=== PATIENT | male | born 2000 | race Two or more races ===

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

== ENCOUNTER 2020-02-17 22:22 | Emergency (ER) | payer OTHER ==
[~2020-02-17] VITALS: Ht 175.3 cm; Wt 61.2 kg
[~2020-02-17 22:22] MED LIST changes: +DOLOGESIC 500-1 EACH PO; +SINGULAIR10 MG PO
== END 2020-02-18 00:50 | disposition home or self-care (01) ==
LOC: ER 22:22
DX: L03.012 Cellulitis of left finger (principal)

== ENCOUNTER 2020-03-07 21:06 | Emergency (ER) | payer OTHER ==
[~2020-03-07] VITALS: Ht 182.9 cm; Wt 59.0 kg
[2020-03-08] MEDS ORDERED: DOLOGESIC-DF 51 EACH PO (00:46)
[2020-03-08] MEDS ORDERED: LEVSIN/SL0.125 MG SL (00:46)
== END 2020-03-08 00:50 | disposition home or self-care (01) ==
LOC: EMR PED 21:06 → ER 21:06 → EMR PED 21:22 → ER 03-08 00:50
DX: B34.9 Viral infection, unspecified (principal); R51.9 Headache, unspecified; R10.84 Generalized abdominal pain

== ENCOUNTER 2020-03-12 19:15 | Emergency (ER) | payer OTHER ==
[~2020-03-12] VITALS: Ht 180.3 cm; Wt 59.0 kg
[~2020-03-12 19:15] MED LIST changes: +DOLOGESIC-DF 51 EACH PO; +LEVSIN/SL0.125 MG SL
== END 2020-03-12 20:33 | disposition left against medical advice (07) ==
LOC: ER 19:15 → EMR PED 19:17 → ER 19:17 → EMR PED 20:33
DX: K52.89 Other specified noninfective gastroenteritis and colitis (principal); R10.84 Generalized abdominal pain

== ENCOUNTER 2020-05-12 20:13 | Emergency (ER) | payer OTHER ==
[~2020-05-12] VITALS: Ht 182.9 cm; Wt 61.2 kg
== END 2020-05-12 22:00 | disposition home or self-care (01) ==
LOC: EMR PED 20:13
DX: S60.811A Abrasion of right wrist, initial encounter (principal); S80.811A Abrasion, right lower leg, initial encounter; S20.311A Abrasion of right front wall of thorax, initial encounter; W22.8XXA Striking against or struck by other objects, initial encounter; Y93.89 Activity, other specified; Y92.018 Other place in single-family (private) house as the place of occurrence of the external cause; Y99.8 Other external cause status

== ENCOUNTER 2020-07-06 19:38 | Emergency (ER) | payer OTHER ==
[~2020-07-06] VITALS: Ht 185.4 cm; Wt 61.2 kg
[2020-07-06] MEDS ORDERED: ZITHROMAX500 MG PO (20:45)
[2020-07-06] MEDS ORDERED: DOLOGEN 325-11 EACH PO (20:45)
== END 2020-07-06 21:18 | disposition home or self-care (01) ==
LOC: EMR PED 19:38
DX: J32.8 Other chronic sinusitis (principal); J31.2 Chronic pharyngitis; R51.9 Headache, unspecified

== ENCOUNTER 2021-11-13 20:27 | Emergency (ER) | payer OTHER ==
[~2021-11-13] VITALS: Ht 188 cm; Wt 74.8 kg
[2021-11-14] MEDS ORDERED: PEPCID40 MG PO (08:17)
[2021-11-14] MEDS ORDERED: INTESTINEX680 M1 PO (08:17)
[2021-11-14] MEDS ORDERED: ONDANSETRON ODT4 MG PO (08:17)
== END 2021-11-14 09:11 ==
LOC: ER 20:27
DX: K52.9 Noninfective gastroenteritis and colitis, unspecified (principal); B34.9 Viral infection, unspecified

== ENCOUNTER 2022-01-17 18:21 | Emergency (ER) | payer OTHER ==
[~2022-01-17] VITALS: Ht 185.4 cm; Wt 59.0 kg
[~2022-01-17 18:21] MED LIST changes: +INTESTINEX680 M1 PO; +ONDANSETRON ODT4 MG PO; +PEPCID40 MG PO
[2022-01-18] MEDS ORDERED: CVS OMEPRAZOLE1 EACH PO (00:16)
[2022-01-18] MEDS ORDERED: INTESTINEX680 M1 PO (04:40)
[2022-01-18] MEDS ORDERED: PEPCID AC20 MG PO (04:40)
[2022-01-18] MEDS ORDERED: LEVSIN0.125 MG PO (04:40)
== END 2022-01-18 05:37 | disposition home or self-care (01) ==
LOC: ER 18:21
DX: A05.9 Bacterial foodborne intoxication, unspecified (principal); K29.70 Gastritis, unspecified, without bleeding

== ENCOUNTER 2022-06-26 23:28 | Emergency (ER) | payer OTHER ==
[~2022-06-26] VITALS: Ht 185.4 cm; Wt 65.8 kg
[~2022-06-26 23:28] MED LIST changes: +CVS OMEPRAZOLE1 EACH PO; +LEVSIN0.125 MG PO; +PEPCID AC20 MG PO
[2022-06-27] MEDS ORDERED: PEPCID40 MG PO (05:26)
[2022-06-27] MEDS ORDERED: ONDANSETRON ODT4 MG PO (05:26)
[2022-06-27] MEDS ORDERED: CEPHALEXIN250 MG/5 M PO (05:26)
== END 2022-06-27 05:36 ==
LOC: ER 23:28
DX: R30.0 Dysuria (principal); K29.70 Gastritis, unspecified, without bleeding; Z20.822 Contact with and (suspected) exposure to COVID-19

== ENCOUNTER 2023-02-02 12:52 | Emergency (ER) | payer OTHER ==
[~2023-02-02] VITALS: Ht 185.4 cm; Wt 61.2 kg
[~2023-02-02 12:52] MED LIST changes: +CEPHALEXIN250 MG/5 M PO
== END 2023-02-02 15:51 | disposition left against medical advice (07) ==
LOC: ER 12:52
PROVIDERS: General Practice
DX: B34.9 Viral infection, unspecified (principal); Z20.822 Contact with and (suspected) exposure to COVID-19

== ENCOUNTER 2025-01-28 21:29 | Emergency (ER) | payer OTHER ==
[~2025-01-28] VITALS: Ht 185.4 cm; Wt 61.2 kg
[2025-01-28] MEDS ORDERED: DEPAKOTE ER500 MG PO (21:41)
[2025-01-28] MEDS ORDERED: RISPERDAL1 MG (21:42)
[2025-01-28] MEDS ORDERED: CLONAZEPAM0.5 MG PO (21:42)
[2025-01-28] MEDS ORDERED: FAMOtidine 10 MG/ML (4ML VIAL) IV ONE (22:00)
[2025-01-28] MEDS ORDERED: ONDANSETRON HCL 2 MG/ML VIAL IV ONE (22:00)
[2025-01-28] MEDS ORDERED: 0.9 % SODIUM CHLORIDE 1,000 ML IV ONE (22:00)
[2025-01-28] MEDS ORDERED: FAMOTIDINE/PF 20 MG/2 ML VIAL ONE (22:09)
[2025-01-28] MEDS ORDERED: ONDANSETRON HCL 2 MG/ML VIAL ONE (22:09)
[2025-01-28 22:47] LABS: ABG PH 7.479 (7.35-7.45); ABG PO2 110.6 mmHg (80-100); BICARBONATE 21.7 mmol/l (23-25)
[2025-01-28 22:56] LABS: o2 21 %
[2025-01-28 23:34] LABS: BASO % 0.2 % (0.1-1.2); EOS # 0.05 (0.04-0.54); EOS % 1.2 % (0.7-7.0); LYMPH # 1.56 (1.18-3.74); LYMPH % 37.5 % (19.3-53.1); MEAN PLATELET VOLUME 10.80 fl (9.4-12.4); MONO # 0.52 (0.24-0.82); MONO % 12.5 % (4.7-12.5); NEUT # 2.01 (1.56-6.13); NEUT % 48.4 % (34.0-71.1); RED CELL DISTRIBUTION WIDTH 11.8 % (11.6-14.4)
[2025-01-28 23:47] LABS: COVID-19 AG NEGATIVE (NEGATIVE)
[2025-01-28 23:50] LABS: ALT/SGPT 11.0 U/L (12-78); AST/SGOT 16.0 U/L (15-37); BILIRUBIN TOTAL 0.79 mg/dL (0.3-1.2); BUN CREA RATIO 14.0 (7.0-25.0); CREATININE SERUM 1.15 mg/dL (0.70-1.30); GFR 78.13; GLOBULINA 3.6 G/DL (2.4-3.5); GLUCOSE FASTING 98.0 mg/dL (65-100); OSMOLALITY SERUM 282.0 MOSM/KG (275-295)
[2025-01-29] MEDS ORDERED: ACETAMINOPHEN 500 MG GEL..CAP PO ONE (02:02)
[2025-01-29] MEDS ORDERED: CLONAZEPAM 1 MG TABLET PO STA (02:18)
[2025-01-29 03:45] LABS: BASO % 0.3 % (0.1-1.2); EOS # 0.04 (0.04-0.54); EOS % 1.0 % (0.7-7.0); LYMPH # 1.84 (1.18-3.74); LYMPH % 46.5 % (19.3-53.1); MEAN PLATELET VOLUME 11.40 fl (9.4-12.4); MONO # 0.43 (0.24-0.82); MONO % 10.9 % (4.7-12.5); NEUT # 1.63 (1.56-6.13); NEUT % 41.0 % (34.0-71.1); RED CELL DISTRIBUTION WIDTH 11.6 % (11.6-14.4)
== END 2025-01-29 04:33 | disposition home or self-care (01) ==
LOC: ER 21:29
PROVIDERS: General Practice
DX: R11.2 Nausea with vomiting, unspecified (principal); B34.9 Viral infection, unspecified; R51.9 Headache, unspecified; Z91.011 Allergy to milk products; Z91.018 Allergy to other foods; D69.6 Thrombocytopenia, unspecified; K59.00 Constipation, unspecified; Z20.822 Contact with and (suspected) exposure to COVID-19

== ENCOUNTER 2025-01-29 16:22 | Emergency (ER) | payer OTHER ==
[~2025-01-29] VITALS: Ht 185.4 cm; Wt 59.0 kg
[~2025-01-29 16:22] MED LIST changes: +CLONAZEPAM0.5 MG PO; +DEPAKOTE ER500 MG PO; +RISPERDAL1 MG
[2025-01-29] MEDS ORDERED: 0.9 % SODIUM CHLORIDE 1,000 ML IV STA (17:54)
[2025-01-29 19:00] LABS: BASO % 0.0 % (0.1-1.2); EOS # 0.05 (0.04-0.54); EOS % 1.3 % (0.7-7.0); LYMPH # 1.71 (1.18-3.74); LYMPH % 44.9 % (19.3-53.1); MEAN PLATELET VOLUME 10.50 fl (9.4-12.4); MONO # 0.43 (0.24-0.82); MONO % 11.3 % (4.7-12.5); NEUT # 1.60 (1.56-6.13); NEUT % 42.0 % (34.0-71.1); RED CELL DISTRIBUTION WIDTH 11.8 % (11.6-14.4)
[2025-01-29 19:24] LABS: ALT/SGPT 9.0 U/L (12-78); AST/SGOT 15.0 U/L (15-37); BILIRUBIN TOTAL 0.68 mg/dL (0.3-1.2); BUN CREA RATIO 13.0 (7.0-25.0); CREATININE SERUM 0.71 mg/dL (0.70-1.30); GFR 136.3; GLOBULINA 3.5 G/DL (2.4-3.5); GLUCOSE FASTING 85.0 mg/dL (65-100); OSMOLALITY SERUM 279.0 MOSM/KG (275-295)
== END 2025-01-29 21:57 | disposition home or self-care (01) ==
LOC: ER 16:32
PROVIDERS: General Practice
DX: B34.9 Viral infection, unspecified (principal); Z20.822 Contact with and (suspected) exposure to COVID-19; Z91.011 Allergy to milk products; Z91.018 Allergy to other foods

== ENCOUNTER 2025-01-31 19:11 | Inpatient (IN) | payer OTHER ==
[~2025-01-31] VITALS: Ht 185.4 cm; Wt 61.2 kg
[2025-01-31] MEDS ORDERED: ONDANSETRON HCL 2 MG/ML VIAL ONE (20:22)
[2025-01-31] MEDS ORDERED: 0.9 % SODIUM CHLORIDE 1,000 ML IV ONE (20:30)
[2025-01-31] MEDS ORDERED: ONDANSETRON HCL 2 MG/ML VIAL IV ONE (20:30)
[2025-01-31 21:43] LABS: BASO % 0.3 % (0.1-1.2); EOS # 0.06 (0.04-0.54); EOS % 1.6 % (0.7-7.0); LYMPH # 1.54 (1.18-3.74); LYMPH % 40.3 % (19.3-53.1); MEAN PLATELET VOLUME 10.70 fl (9.4-12.4); MONO # 0.33 (0.24-0.82); MONO % 8.6 % (4.7-12.5); NEUT # 1.87 (1.56-6.13); NEUT % 48.9 % (34.0-71.1); RED CELL DISTRIBUTION WIDTH 11.9 % (11.6-14.4)
[2025-01-31 21:49] LABS: URINE APPEARANCE Clear; URINE BILIRRUBIN Negative (NEGATIVE); URINE BLOOD Negative; URINE COLOR Yellow; URINE GLUCOSE Negative (NEGATIVE); URINE KETONE Trace (NEGATIVE); URINE LEUKOCYTE Negative; URINE NITRATE Negative; URINE PROTEIN Negative (NEGATIVE); URINE UROBILINOGEN 1.0 E.U./dl
[2025-01-31 21:50] LABS: URINE BACTERIA 5.9 uL (0.0-1933); URINE EPITHELIAL CELLS 1.8 uL (0.0-38.8); URINE WBC 4.9 uL (0.0-23.2)
[2025-01-31 21:54] LABS: URINE CAST 0.00 uL (0.0-1.40); URINE RBC 1.7 uL (0.0-20.8)
[2025-01-31 22:06] LABS: INR 1.15
[2025-01-31 22:11] LABS: COVID-19 AG NEGATIVE (NEGATIVE)
[2025-01-31 22:11] LABS: ALT/SGPT 6.0 U/L (12-78); AST/SGOT 12.0 U/L (15-37); BILIRUBIN TOTAL 0.47 mg/dL (0.3-1.2); BILIRUBIN,CONJUGATED 0.17 mg/dL (0.0-0.2); BUN CREA RATIO 8.0 (7.0-25.0); CREATININE SERUM 0.77 mg/dL (0.70-1.30); GFR 124.12; GLOBULINA 3.1 G/DL (2.4-3.5); GLUCOSE FASTING 83.0 mg/dL (65-100); OSMOLALITY SERUM 285.0 MOSM/KG (275-295)
[2025-01-31] MEDS ORDERED: 0.9 % SODIUM CHLORIDE 1,000 ML IV SCH (22:30)
[2025-01-31] MEDS ORDERED: ACETAMINOPHEN 500 MG GEL..CAP PO PRN (22:45)
[2025-01-31 23:42] VITALS: BP 119/80
[2025-02-01 00:04] VITALS: BP 117/80; O2SAT 100
[2025-02-01 02:54] VITALS: BP 101/67; O2SAT 99
[2025-02-01 06:50] LABS: BASO % 0.5 % (0.1-1.2); EOS # 0.06 (0.04-0.54); EOS % 1.4 % (0.7-7.0); LYMPH # 1.88 (1.18-3.74); LYMPH % 45.3 % (19.3-53.1); MEAN PLATELET VOLUME 11.00 fl (9.4-12.4); MONO # 0.35 (0.24-0.82); MONO % 8.4 % (4.7-12.5); NEUT # 1.83 (1.56-6.13); NEUT % 44.2 % (34.0-71.1); RED CELL DISTRIBUTION WIDTH 12.0 % (11.6-14.4)
[2025-02-01 08:07] VITALS: BP 105/70
[2025-02-01] MEDS ORDERED: CLONAZEPAM 0.5 MG TABLET PO SCH (09:00)
[2025-02-01] MEDS ORDERED: NICOTINE 21MG/24HR PATCH.TD24 TD SCH (09:00)
[2025-02-01] MEDS ORDERED: DIVALPROEX SODIUM 500 MG TABLET.DR PO SCH (09:00)
[2025-02-01] MEDS ORDERED: RISPERIDONE 1 MG TABLET PO SCH (09:00)
[2025-02-01] MEDS ORDERED: PANTOPRAZOLE SODIUM 40 MG/VIAL VIAL IV SCH (09:00)
[2025-02-01] MEDS ORDERED: ONDANSETRON HCL 2 MG/ML VIAL IM PRN (09:45)
[2025-02-01 17:22] VITALS: BP 116/75
[2025-02-02 02:16] VITALS: BP 103/67; O2SAT 98
[2025-02-02 06:25] LABS: BASO % 0.2 % (0.1-1.2); EOS # 0.07 (0.04-0.54); EOS % 1.7 % (0.7-7.0); LYMPH # 1.39 (1.18-3.74); LYMPH % 33.7 % (19.3-53.1); MEAN PLATELET VOLUME 11.60 fl (9.4-12.4); MONO # 0.38 (0.24-0.82); MONO % 9.2 % (4.7-12.5); NEUT # 2.27 (1.56-6.13); NEUT % 55.0 % (34.0-71.1); RED CELL DISTRIBUTION WIDTH 11.9 % (11.6-14.4)
[2025-02-02 08:42] VITALS: BP 109/71
[2025-02-02 17:48] VITALS: BP 121/78; O2SAT 100
[2025-02-03 04:42] VITALS: BP 100/63; O2SAT 97
[2025-02-03 06:47] LABS: BASO % 0.2 % (0.1-1.2); EOS # 0.03 (0.04-0.54); EOS % 0.6 % (0.7-7.0); LYMPH # 1.30 (1.18-3.74); LYMPH % 24.4 % (19.3-53.1); MEAN PLATELET VOLUME 11.00 fl (9.4-12.4); MONO # 0.59 (0.24-0.82); MONO % 11.1 % (4.7-12.5); NEUT # 3.38 (1.56-6.13); NEUT % 63.3 % (34.0-71.1); RED CELL DISTRIBUTION WIDTH 11.9 % (11.6-14.4)
[2025-02-03 10:05] VITALS: BP 105/67; O2SAT 99
[2025-02-03 21:07] LABS: chla t Negative (Negative); neiss Negative (Negative)
== END 2025-02-03 10:39 | disposition home or self-care (01) | DRG 866 ==
LOC: ER 19:11 → MEDJ 22:37
PROVIDERS: General Practice; Internal Medicine Infectious Disease; ADMIT Student in an Organized Health Care Education/Training Program; ATTEND Student in an Organized Health Care Education/Training Program
PROC: BW40ZZZ Ultrasonography of Abdomen (ICD-10-PCS; principal; 2025-01-31)
DX: A90 Dengue fever [classical dengue] (principal); E86.0 Dehydration; R11.2 Nausea with vomiting, unspecified; B34.9 Viral infection, unspecified; D69.6 Thrombocytopenia, unspecified; R30.0 Dysuria